=== PATIENT | male | born 1965 | race American Indian/Alaskan Native ===

== ENCOUNTER 2016-04-28 08:18 | Outpatient (CLI) | payer OTHER ==
[2016-04-28 08:55] LABS: Blood Urea Nitrogen 13 mg/dL (9-20)
[2016-04-28] MEDS ORDERED: NACL ONE (09:03)
--- NOTE | 2016-04-28 11:19 | Cat Scan Report ---
CTA abdomen, pelvis, lower extremities: Transverse images are obtained from lower chest to the feet with coronal and sagittal 2-D reformatted images as well as 3-D MIP reconstruction. The visualized lung bases are clear. The abdominal and retroperitoneal organs appear unremarkable. There is no adenopathy. The unopacified small bowel and mesentery are unremarkable. The appendix is visualized and normal. Scattered diverticula are noted in the colon. The lower thoracic and upper abdominal aorta is unremarkable. The mesenteric vessels are all patent. Does the patient single right renal artery and 2 patent left renal arteries. Approximately 4 cm below the lower of the left 2 renal arteries the abdominal aorta becomes aneurysmal in a fusiform shape with a maximum diameter of 4 centimeters. The aneurysm bifurcates into the common iliac arteries which are also aneurysmal with the right measuring just under 2 cm and the left measuring 1.7 cm. The JENNIFER's by bifurcate normally. The common femoral arteries and femoral bifurcations are also widely patent bilaterally. Both of the superficial femoral arteries as well as the popliteal and common peroneal arteries are widely patent. There is a normal peroneal trifurcation bilaterally with continuous three-vessel runoff to both ankles. Impressions: 1. Infrarenal abdominal aortic aneurysm extending into the common iliac arteries bilaterally. 2. Unremarkable bilateral lower extremity runoff vessels.
== END 2016-04-28 08:19 | disposition home or self-care (01) ==
LOC: CT 08:18
PROVIDERS: ATTEND Surgery Vascular Surgery
DX: I10 Essential (primary) hypertension (principal); I71.4 Abdominal aortic aneurysm, without rupture; K57.30 Diverticulosis of large intestine without perforation or abscess without bleeding
CPT/HCPCS: 36415; 75635; 82565; 84520; Q9967

== ENCOUNTER 2016-12-06 08:15 | Inpatient (IN) | payer OTHER ==
[2016-12-06 09:06] LABS: Basophils % (Auto) 0.5 % (0.0-1.8); Eosinophils % (Auto) 1.7 % (0.0-4.3); Hematocrit 45.3 % (35.5-45.6); Hemoglobin 15.1 gm/dl (11.8-15.2); Mean Corpuscular HGB Conc 33 % (32-34); Mean Corpuscular Hemoglobin 29 pg (28-32); Mean Corpuscular Volume 87 fl (84-94); Platelet Count 163 K/mm3 (140-440); Red Blood Count 5.24 M/mm3 (3.65-5.03); Red Cell Distribution Width 13.6 % (13.2-15.2); White Blood Count 8.6 K/mm3 (4.5-11.0)
--- NOTE | 2016-12-06 09:08 | Anesthesia Consultation ---
Anesthesia Consult and Med Hx Date of service: 12/08/16 - Airway Anesthetic Teeth Evaluation: Good ROM Head & Neck: Adequate Mental/Hyoid Distance: Adequate Mallampati Class: Class II Intubation Access Assessment: Probably Good - Pulmonary Exam CTA: Yes - Cardiac Exam Cardiac Exam: RRR - Pre-Operative Health Status ASA Pre-Surgery Classification: ASA2 Proposed Anesthetic Plan: General - Pulmonary Hx Smoking: No Hx Asthma: No Hx Sleep Apnea: No - Cardiovascular System Hx Hypertension: Yes (EF 45-50%) Hx Coronary Artery Disease: No Hx Cardia Arrhythmia: Yes ("irregular heartbeat") Hx Peripheral Vascular Disease: Yes (AORTIC ANEURYSM) - Central Nervous System Hx Seizures: No CVA: No Hx Back Pain: Yes Hx Psychiatric Problems: No - Endocrine Hx Renal Disease: No Hx Cirrhosis: No Hx Thyroid Disease: No Hx Hyperthyroidism: No - Other Systems Hx Cancer: No Hx Obesity: No - Additional Comments Anesthesia Medical History Comments: CARDIAC CLEARANCE ON CHART
[2016-12-08] MEDS ORDERED: NACL 0.9% 1000 ML 1,000 ML IV SCH ×2 (06:00)
[2016-12-08] MEDS ORDERED: VERSED IV NR (06:00)
[2016-12-08] MEDS ORDERED: ANCEF/STERILE WATER 2 GM/20 ML 2 GM/20 ML SYRINGE IV NR (06:00)
[2016-12-08] MEDS ORDERED: PEPCID PO NR (06:00)
[2016-12-08] MEDS ORDERED: NACL BACTERIOSTATIC INFILTRATI ONE (06:28)
[2016-12-08] MEDS ORDERED: ZEMURON IV ONE (07:09)
[2016-12-08] MEDS ORDERED: XYLOCAINE CARDIAC IV ONE (07:09)
[2016-12-08 07:22] LABS: Anion Gap 17 mmol/L; BUN/Creatinine Ratio 16.36; Blood Urea Nitrogen 18 mg/dL (9-20); Calcium 8.8 mg/dL (8.4-10.2); Carbon Dioxide 28 mmol/L (22-30); Chloride 102.9 mmol/L (98-107); Glucose 102 mg/dL (75-100); Potassium 3.9 mmol/L (3.6-5.0); Sodium 144 mmol/L (137-145)
[2016-12-08] MEDS ORDERED: HEPARIN 10,000 UNITS/10 ML ONE ×2 (07:30→09:55)
[2016-12-08] MEDS ORDERED: MARCAINE-EPI/PF 0.5%-1:200,000 INFILTRATI ONE ×2 (07:30→08:38)
[2016-12-08] MEDS ORDERED: PROTAMINE SULFATE ONE (07:30)
[2016-12-08] MEDS ORDERED: NACL 0.9% 200 ML ONE (07:31)
--- NOTE | 2016-12-08 07:36 | Anesthesia Day of Surgery ---
Anesthesia Day of Surgery - Day of Surgery Patient Examined: Yes Patient H&P Reviewed: Yes Patient is NPO: Yes Beta Blockers: Yes
[2016-12-08] MEDS ORDERED: DIPRIVAN 10 MG/ML IV ONE (07:47)
[2016-12-08] MEDS ORDERED: SUBLIMAZE ONE (07:48)
[2016-12-08] MEDS ORDERED: NACL 0.9% 250ML 250 ML ONE (07:56)
[2016-12-08] MEDS ORDERED: MORPHINE IV ONE (08:00)
[2016-12-08] MEDS ORDERED: NACL 0.9% IR ONE ×3 (08:38)
[2016-12-08] MEDS ORDERED: OMNIPAQUE IR ONE ×2 (08:38)
[2016-12-08] MEDS ORDERED: HEPARIN 10,000 UNITS/10 ML 4,000 UNIT in NACL 0.9% 1000 ML 1,000 ML IR ONE (08:38)
[2016-12-08] MEDS ORDERED: ZOFRAN IV PRN (09:30)
[2016-12-08] MEDS ORDERED: ZOFRAN ONE (10:13)
[2016-12-08] MEDS ORDERED: NEOSTIGMINE ONE (10:13)
[2016-12-08] MEDS ORDERED: ROBINUL ONE (10:13)
--- NOTE | 2016-12-08 10:33 | Operative Report ---
Operative Report Operative Report: Date of procedure: 12/08/2016 Pre-operative diagnosis: Abdominal aortic aneurysm Post-operative diagnosis: Same Procedure name(s): #1 Percutaneous endovascular abdominal and iliac artery aneurysms repair with Endurant endograft main body measuring 23 x 14 x 103 through the ipsilateral right side, contralateral limb 16 x 20 x 124 ipsilateral limb skin by 28 x 8 124 #2 introduction of catheters and wires into the aorta bilaterally. #3 aortic angiogram with radiologic supervision and closure. #4 ultrasound assisted introduction of the needle into the common femoral arteries bilaterally. #5 placement of balloon expandable 9 x 20 stent in the right external iliac artery. #6 percutaneous closure using Perclose device bilaterally. Surgeon: Abhijit Gallo MD, RPV[facility] Biology Research Assistant: CHANDNI Viramontes Anesthesia: Gen. Findings #1 abdominal aortic aneurysm #2 patent bilateral renal arteries post deployment #3 left patent hypogastric artery post deployment; occluded right hypogastric artery #4 complete exclusion of the aneurysms after the placing of the endograft with no evidence of endoleak. #5 excellent hemostatic closure. #6 both feet were warm with palpable pedal at the end of the case and the same as preop Specimens: None EBL: 50 mL IV fluids: 750 mL Disposition: The recovery Procedure Patient was brought to the operating room and laid on the table in supine position. Due to patient wishes he underwent general anesthesia. The abdomen and the groins were prepped and draped in usual sterile fashion. Under ultrasonic guidance the right common femoral artery was accessed using an a micropuncture needle. A micropuncture wire was advanced into the iliac artery. The introducer was placed the wire was exchanged to a Bentson wire. The tract was dilated using a 6 Georgian sheath. The Perclose device was placed with sutures toward the middle. They were anchored to the skin using Steri-Strips. Another Perclose device was placed with sutures laterally. They were also secured with a Steri-Strips. The 8 Georgian sheath was placed over the wire. The angled catheter was placed over the wire into the thoracic aorta. The wire was exchanged to a stiff Lunderquist wire. Under ultrasound guidance the left common femoral artery was accessed in the same fashion. 2 Perclose devices was placed in the same way. The 8 Georgian sheath was placed in the left common femoral artery over the wire. The pigtail catheter was advanced to the level of L2. The main body device was placed over the wire from the right side with the end of the fabric at about L1. The angiogram was performed and the renal arteries were marked on the screen. Patient was given 5000 units of intravenous heparin. The main body was positioned with the contralateral gate crossed to about anatomically. It was deployed infrarenally until the gate opened. The suprarenal stent was released. The pigtail was brought down below the gate. The cannulation of the gate was performed using the pigtail catheter and a Glidewire. The catheter spun around freely inside the graft. It was advanced into the thoracic aorta. The Lunderquist wire was placed through the pigtail. The pigtail was brought down to the level of the iliac artery. The angiogram through the left side was performed and the hypogastric artery was marked. The contralateral limb was advanced until adequate overlap with the gate was achieved. It was deployed in usual fashion. The retrograde angiogram from the right was performed. The right hypogastric artery was marked. The ipsilateral extension limb was placed and deployed. After the deployment the right hypogastric artery appeared to be occluded. And there was a 28 mm limb in the 10 mm artery. An attempt to advance the limb above the hypogastric was unsuccessful. It was further then stented using a 9 x 20 balloon expandable stent to prevent enfolding. Given the fact that the contralateral hypogastric was wide open and it was decided to leave this as it is. Retrograde angiogram showed no endoleak. The proximal and distal attachment sites were ballooned using the Reliant balloon as well as the overlap sites. Postprocedure angiogram revealed patent bilateral renal arteries, patent bilateral hypogastric arteries no evidence of endoleak. The sheaths were backed out over the wire and bilateral hemostasis was achieved by cinching down Perclose devices. Hemostasis was excellent and no bleeding was seen. The feet were examined there were warm to touch the same as preop. Bilateral palpable pedal pulses were noted. Patient tolerated procedure well and was transferred to recovery room in stable condition. At the end of the case all instrument, sponge, needle counts were correct
--- NOTE | 2016-12-08 10:47 | Post Anesthesia Evaluation ---
- Post Anesthesia Evaluation Patient Participated: Yes Airway Patent: Yes Stable Respiratory Function: Yes Nausea/Vomiting: No Temp > 96.8F: Yes Pain Manageable: Yes Adequeate Hydration: Yes Anesthesia Complications: No Block Receding Appropriately: Not Applicable Patient on Ventilator: No
[2016-12-08] MEDS: NACL 0.9% 1000 ML 1,000 ML IV SCH (13:05)
--- NOTE | 2016-12-08 13:52 | Progress Note ---
Assessment and Plan Status post endovascular repair of abdominal aortic aneurysm. Patient is doing well. Plan: Continue bed rest until 6 hours. DC Alexander in the line. Out of bed after bed rest. Subjective Date of service: 12/08/16 Principal diagnosis: AAA Interval history: Status post endovascular repair of abdominal aortic aneurysm repair. He was plans. Objective - Exam Narrative Exam: Abdomen soft, nontender no pulsatile masses. Palpable bilateral pedal pulses Bilateral groins soft no hematomas. - Constitutional Vitals: Vital Signs - 12hr 12/08/16 12/08/16 12/08/16 06:22 06:49 10:35 Temperature 98.6 F 98.6 F 97.7 F Pulse Rate 68 68 64 Respiratory 16 16 12 Rate Blood Pressure 130/83 130/83 99/51 O2 Sat by Pulse 97 97 100 Oximetry 12/08/16 12/08/16 12/08/16 10:40 10:45 10:50 Temperature Pulse Rate 69 56 L 53 L Respiratory 13 14 15 Rate Blood Pressure 110/71 109/71 110/71 O2 Sat by Pulse 100 100 100 Oximetry 12/08/16 12/08/16 12/08/16 11:05 11:20 11:35 Temperature 97.2 F L Pulse Rate 59 L 52 L 52 L Respiratory 17 17 16 Rate Blood Pressure 115/74 120/75 119/72 O2 Sat by Pulse 100 100 100 Oximetry 12/08/16 12/08/16 12/08/16 11:50 12:05 12:20 Temperature Pulse Rate 55 L 55 L 58 L Respiratory 14 15 15 Rate Blood Pressure 115/72 108/70 112/72 O2 Sat by Pulse 100 100 98 Oximetry 12/08/16 12/08/16 12:35 13:00 Temperature 97.5 F L 98.2 F Pulse Rate 59 L 55 L Respiratory 15 15 Rate Blood Pressure 113/70 118/75 O2 Sat by Pulse 98 98 Oximetry - Labs CBC & Chem 7: 12/06/16 08:50 12/08/16 06:44 Labs: Abnormal lab results 12/08/16 Range/Units 06:44 Glucose 102 H (75-100) mg/dL
[2016-12-08] MEDS ORDERED: ANCEF/NS 1 GM/50 ML 1 GM/50 ML BAG IV SCH (14:00)
[2016-12-08] MEDS: DILAUDID IV PRN ×2 (14:25→19:25)
[2016-12-08] MEDS: ANCEF/NS 1 GM/50 ML 1 GM/50 ML BAG IV SCH (16:42)
[2016-12-08] MEDS ORDERED: ZOCOR PO SCH (22:00)
[2016-12-08] MEDS: COREG PO SCH (22:30)
[2016-12-09] MEDS: ANCEF/NS 1 GM/50 ML 1 GM/50 ML BAG IV SCH (01:58)
[2016-12-09] MEDS: NORCO 5/325 PO PRN ×2 (04:20→09:11)
[2016-12-09] MEDS: NACL 0.9% 1000 ML 1,000 ML IV SCH (07:28)
[2016-12-09] MEDS: COREG PO SCH (09:11)
--- NOTE | 2016-12-09 09:53 | Consultation ---
History of Present Illness - Reason for Consult Consult date: 12/09/16 Post-Op Care ICU monitoring Requesting physician: HARVEY KNAPP - History of Present Illness 51 y/o male status post AAA repair by vascular on yesterday. Stable this morning. Has some complaints of chronic back pain. Vitals stable. No other issues Past History Past Medical History: hypertension, hyperlipidemia, other (chronic pain) Past Surgical History: Other (AAA repair, recently done) Social history: no significant social history Family history: no significant family history Medications and Allergies Allergies Allergy/AdvReac Type Severity Reaction Status Date / Time aspirin Allergy Anaphylaxis Verified 12/06/16 09:56 Home Medications Medication Instructions Recorded Confirmed Last Taken Type Simvastatin [Simvastatin] 20 mg PO QHS 03/17/16 12/08/16 12/07/16 22:00 History Amlodipine Besylate [Amlodipine 10 mg PO DAILY 12/02/16 12/08/16 12/08/16 05:30 History Besylate] Oxycodone HCl/Acetaminophen 1 tab PO PRN PRN 12/02/16 12/08/16 11/24/16 History [Oxycodone-Acetaminophen 5-325] Carvedilol [Coreg] 25 mg PO BID 12/08/16 12/08/16 12/08/16 05:30 History Active Meds: Active Medications Acetaminophen/Hydrocodone Bitart ([place] 5/325) 1 each PO Q4H PRN PRN Reason: Pain, Moderate (4-6) Last Admin: 12/09/16 09:11 Dose: 1 each Amlodipine Besylate (Norvasc) 10 mg PO DAILY [facility] Last Admin: 12/09/16 09:12 Dose: 10 mg Carvedilol (Coreg) 25 mg PO BID [facility] Last Admin: 12/09/16 09:11 Dose: 25 mg Clopidogrel Bisulfate (Plavix) 75 mg PO QDAY [facility] Last Admin: 12/09/16 09:11 Dose: 75 mg Sodium Chloride (Nacl 0.9% 1000 Ml) 1,000 mls @ 42 mls/hr IV DIRECT MEG Sodium Chloride (Nacl 0.9% 1000 Ml) 1,000 mls @ 75 mls/hr IV DIRECT [facility] Last Admin: 12/08/16 06:45 Dose: 75 mls/hr Simvastatin (Zocor) 20 mg PO QHS [facility] Last Admin: 12/08/16 22:30 Dose: 20 mg Review of Systems All systems: negative Exam - Constitutional Vitals: Temp Pulse Resp BP Pulse Ox 99.5 F 74 15 113/64 98 12/09/16 07:58 12/09/16 09:12 12/09/16 09:00 12/09/16 09:12 12/09/16 09:00 General appearance: Present: no acute distress - EENT Eyes: Present: PERRL, EOM intact ENT: hearing intact, clear oral mucosa - Neck Neck: Present: supple - Respiratory Respiratory effort: normal Respiratory: bilateral: CTA - Cardiovascular Rhythm: regular Heart Sounds: Present: S1 & S2 - Extremities Extremities: no ischemia Results - Labs CBC & Chem 7: 12/06/16 08:50 12/08/16 06:44 Labs: Abnormal lab results 12/08/16 12/08/16 Range/Units 09:15 10:04 Activated Clotting Time 186 H 191 H (74-137) Assessment and Plan 51 y/o male with triple A repair endovascular. 1. Continue home medication regimen 2. Follow up vascular recs 3. Clinically appears stable for floor transfer.
[2016-12-09] MEDS ORDERED: NORVASC PO SCH (10:00)
[2016-12-09] MEDS ORDERED: PLAVIX PO SCH (10:00)
--- NOTE | 2016-12-09 12:08 | Progress Note ---
Assessment and Plan Postoperative day 1. Status post EVAR. We'll continue pain control with [place]. Dulcolax suppository for constipation. Patient will get out of bed. He is back pain is most likely related to positioning on the table during procedure. Plan to check patient this afternoon. If he improves, we'll discharge today. Subjective Date of service: 12/09/16 Principal diagnosis: AAA Interval history: Patient is complaining of back pain, however it was preexistent before intervention. He is also complaining of some abdominal pain that is worse with eating. He denies groin pain, lower extremity pain or numbness. Objective - Exam Narrative Exam: Abdomen is soft, nondistended, with tenderness in the left lower quadrant. This could be related to constipation. He is afebrile and his vital signs are stable. Bilateral groin incisions are clean dry and intact, without hematoma or drainage. Palpable pedal pulses. - Constitutional Vitals: Vital Signs - 12hr 12/09/16 12/09/16 12/09/16 01:00 02:00 03:00 Temperature Pulse Rate 67 67 69 Respiratory 16 19 17 Rate Blood Pressure 122/71 122/74 106/53 O2 Sat by Pulse 96 95 93 Oximetry 12/09/16 12/09/16 12/09/16 03:37 04:01 05:00 Temperature 99.9 F H Pulse Rate 65 64 Respiratory 20 18 Rate Blood Pressure 98/49 112/70 O2 Sat by Pulse 93 96 Oximetry 12/09/16 12/09/16 12/09/16 06:00 07:00 07:58 Temperature 99.5 F Pulse Rate 68 63 Respiratory 17 19 Rate Blood Pressure 106/59 105/60 O2 Sat by Pulse 96 94 Oximetry 12/09/16 12/09/16 12/09/16 08:00 08:43 09:00 Temperature Pulse Rate 67 71 Respiratory 20 15 Rate Blood Pressure 109/59 113/64 O2 Sat by Pulse 97 99 98 Oximetry 12/09/16 12/09/16 12/09/16 09:11 09:12 10:00 Temperature Pulse Rate 74 74 61 Respiratory 14 Rate Blood Pressure 113/64 113/64 113/68 O2 Sat by Pulse 99 Oximetry 12/09/16 11:00 Temperature Pulse Rate 63 Respiratory 20 Rate Blood Pressure 99/58 O2 Sat by Pulse 98 Oximetry General appearance: Present: no acute distress - Labs CBC & Chem 7: 12/06/16 08:50 12/08/16 06:44 Labs: Abnormal lab results 12/08/16 12/08/16 Range/Units 09:15 10:04 Activated Clotting Time 186 H 191 H (74-137)
[2016-12-09] MEDS ORDERED: NACL 0.9% 500 ML 500 ML IV ONE (12:58)
[2016-12-09] MEDS ORDERED: NACL ONE (15:57)
--- NOTE | 2016-12-09 16:33 | Short Stay Summary ---
Short Stay Documentation - History H&P: obtained from office Past Medical History: hypertension, hyperlipidemia, other (chronic pain) Past Surgical History: Other (AAA repair, recently done) Social history: no significant social history - Allergies and Medications Current Medications: Allergies aspirin Allergy (Verified 12/06/16 09:56) Anaphylaxis Home Medications Medication Instructions Recorded Confirmed Last Taken Type Simvastatin [Simvastatin] 20 mg PO QHS 03/17/16 12/08/16 12/07/16 22:00 History Amlodipine Besylate [Amlodipine 10 mg PO DAILY 12/02/16 12/08/16 12/08/16 05:30 History Besylate] Oxycodone HCl/Acetaminophen 1 tab PO PRN PRN 12/02/16 12/08/16 11/24/16 History [Oxycodone-Acetaminophen 5-325] Carvedilol [Coreg] 25 mg PO BID 12/08/16 12/08/16 12/08/16 05:30 History Active Medications Acetaminophen/Hydrocodone Bitart ([place] 5/325) 1 each PO Q4H PRN PRN Reason: Pain, Moderate (4-6) Last Admin: 12/09/16 09:11 Dose: 1 each Amlodipine Besylate (Norvasc) 10 mg PO DAILY [facility] Last Admin: 12/09/16 09:12 Dose: 10 mg Carvedilol (Coreg) 25 mg PO BID [facility] Last Admin: 12/09/16 09:11 Dose: 25 mg Clopidogrel Bisulfate (Plavix) 75 mg PO QDAY [facility] Last Admin: 12/09/16 09:11 Dose: 75 mg Sodium Chloride (Nacl 0.9% 1000 Ml) 1,000 mls @ 42 mls/hr IV DIRECT MEG Sodium Chloride (Nacl 0.9% 1000 Ml) 1,000 mls @ 75 mls/hr IV DIRECT [facility] Last Admin: 12/08/16 06:45 Dose: 75 mls/hr Simvastatin (Zocor) 20 mg PO QHS [facility] Last Admin: 12/08/16 22:30 Dose: 20 mg - Physical exam Extremities: no ischemia - Brief post op/procedure progress note Procedure: Date of procedure: 12/08/2016 Pre-operative diagnosis: Abdominal aortic aneurysm Post-operative diagnosis: Same Procedure name(s): #1 Percutaneous endovascular abdominal and iliac artery aneurysms repair with Endurant endograft main body measuring 23 x 14 x 103 through the ipsilateral right side, contralateral limb 16 x 20 x 124 ipsilateral limb skin by 28 x 8 124 #2 introduction of catheters and wires into the aorta bilaterally. #3 aortic angiogram with radiologic supervision and closure. #4 ultrasound assisted introduction of the needle into the common femoral arteries bilaterally. #5 placement of balloon expandable 9 x 20 stent in the right external iliac artery. #6 percutaneous closure using Perclose device bilaterally. Surgeon: Abhijit Gallo MD, RPVI Aircraft Engine Specialist: CHANDNI Viramontes Anesthesia: Gen. Findings #1 abdominal aortic aneurysm #2 patent bilateral renal arteries post deployment #3 left patent hypogastric artery post deployment; occluded right hypogastric artery #4 complete exclusion of the aneurysms after the placing of the endograft with no evidence of endoleak. #5 excellent hemostatic closure. #6 both feet were warm with palpable pedal at the end of the case and the same as preop Specimens: None EBL: 50 mL IV fluids: 750 mL Disposition: The recovery - Hospital course Hospital course: Patient was admitted for elective as groin and abdominal aortic aneurysm for which he underwent endovascular repair was no issues. On postop day 1 he had a short period of hypotension that appeared to be vasovagal. He underwent a CT scan of the abdomen and pelvis with contrast that showed no retroperitoneal hematoma and intact aneurysm repair as well as no evidence of bowel ischemia. Patient has complained of back pain which is most likely due to positioning on the table as well as being bedridden overnight. Patient is doing well now and ready to go home. - Disposition Condition at discharge: Good Disposition: DC-01 TO HOME OR SELFCARE Short Stay Discharge Plan Activity: advance as tolerated, other (no heavy exercise or riding for 1 week) Diet: regular Wound: open to air Follow up with: ANNIE CM MD [Primary Care Provider] - 7 Days ABHIJIT GALLO MD [Staff Physician] - 14 Days
--- NOTE | 2016-12-09 16:46 | Cat Scan Report ---
CTA abdomen and pelvis: Patient with recent endograft placement and hypotension for evaluation. Following IV contrast administration and rapid sequence transverse images were obtained from the low chest to the ischium with coronal and sagittal 2-D reformatted images. Derotational 3-D MIP images is included. The visualized lung bases are unremarkable. Tiny gallstone versus vessel. Normal retroperitoneal organs. Unremarkable on nonenhanced bowel and mesentery. The endograft insertion is at the approximate level of the renal arteries. Both renal arteries are patent as are the SMA and celiac vessels. There is a fusiform aneurysm of the mid and distal abdominal aorta with a maximum diameter of 4.2 cm. This is not significantly changed from the preoperative aorta in April 2006 obtained. There is an endograft leak arising from the aorta just proximal to the limb division. The leak is anterior and predominantly overlies the left limb. The focal leakage collection measures 0.9 x 1.4 cm. A thin extension of the leak extends inferiorly along the left and posterior periphery of the aneurysm filling spinal vessels posteriorly. The limbs insert in the common iliac arteries respectively. An air bubble is present in the aneurysm thrombus anterior to the proximal limbs. Impressions: Endograft leak.
[2016-12-09 17:03] VITALS: BP 142/90
== END 2016-12-09 17:39 | disposition home or self-care (01) | DRG 269 ==
LOC: UNDOADMIN 08:15 → 3A 08:15 → CC1 12-08 10:45
PROVIDERS: ADMIT Surgery Vascular Surgery; ATTEND Surgery Vascular Surgery
PROC: 04V03DZ Restriction of Abdominal Aorta with Intraluminal Device, Percutaneous Approach (ICD-10-PCS; principal; 2016-12-08)
PROC: 04VH3DZ Restriction of Right External Iliac Artery with Intraluminal Device, Percutaneous Approach (ICD-10-PCS; 2016-12-08)
PROC: B41D1ZZ Fluoroscopy of Aorta and Bilateral Lower Extremity Arteries using Low Osmolar Contrast (ICD-10-PCS; 2016-12-08)
DX: I71.4 Abdominal aortic aneurysm, without rupture (principal); I10 Essential (primary) hypertension; E78.5 Hyperlipidemia, unspecified; G89.29 Other chronic pain; K59.00 Constipation, unspecified; I73.9 Peripheral vascular disease, unspecified; Z88.6 Allergy status to analgesic agent; Z79.899 Other long term (current) drug therapy
CPT/HCPCS: 36415; 36620; 74174; 75952; 80048; 85025; 85347; 86850; 86900; 86901; 94760; C1760; C1768; C1769; C1876; C1887; C1894; J0690; J1170; J1644; J2001; J2250; J2270; J2405; J2704; J2710; J2720; J3010; J3246; J7030; J7040; J7050; Q9966; Q9967

== ENCOUNTER 2017-03-29 08:33 | Outpatient (CLI) | payer OTHER ==
[2017-03-29 09:05] LABS: Blood Urea Nitrogen 13 mg/dL (9-20)
[2017-03-29] MEDS ORDERED: NACL ONE (09:57)
--- NOTE | 2017-03-29 14:08 | Cat Scan Report ---
CT ANGIOGRAM ABDOMEN AND PELVIS History: Abdominal aortic aneurysm without rupture Technique: Helical CT following IV contrast and 1.25 mm intervals. Sagittal and coronal reformatted images. Three-dimensional volume rendering technique. Comparison: 12/13/16. Findings: The aortobiiliac stent remains in the same position since the previous exam. The infrarenal AAA has increased in size slightly from 4.2 cm to 4.5 cm in maximum diameter. Type II endoleak is again seen and not significantly changed. No new endoleak is appreciated. The aorta, celiac axis, SMA, and bilateral single renal arteries are patent with less than 20% stenosis. The origin of the MARIUM is occluded. The origin of the right internal iliac artery appears occluded. Impression: Infrarenal AAA has increased in maximum diameter from 4.2 cm to 4.5 cm. Type II endoleak is unchanged.
== END 2017-03-29 08:34 | disposition home or self-care (01) ==
LOC: CT 08:33
PROVIDERS: ATTEND Surgery Vascular Surgery
DX: I10 Essential (primary) hypertension (principal); I71.4 Abdominal aortic aneurysm, without rupture; I12.9 Hypertensive chronic kidney disease with stage 1 through stage 4 chronic kidney disease, or unspecified chronic kidney disease; N18.9 Chronic kidney disease, unspecified; E78.5 Hyperlipidemia, unspecified
CPT/HCPCS: 36415; 74174; 82565; 84520; Q9967

== ENCOUNTER 2017-05-23 10:13 | Emergency (ER) | payer OTHER ==
[2017-05-23 10:36] VITALS: BP 117/69
--- NOTE | 2017-05-23 13:40 | Emergency Department Report ---
ED Rash HPI - HPI Chief Complaint: Skin Rash Stated Complaint: RASH Time Seen by Provider: 05/23/17 13:34 Duration: 3 months Location: Lower Extremities Rash Symptoms: Yes Itching, No Facial Swelling, No Tongue/Oral Swelling, No Breathing Difficulties, No Choking Sensation, No Wheezing/Dyspnea, No Peeling, No Blistering, No Fever, No Lightheaded, No Malaise, No Myalgias Severity: mild ED Review of Systems ROS: Stated complaint: RASH Other details as noted in HPI Comment: All other systems reviewed and negative ENT: denies: throat pain Respiratory: denies: cough Cardiovascular: denies: chest pain ED Past Medical Hx - Past Medical History Previous Medical History?: Yes Hx Hypertension: Yes Hx CVA: Yes (2000) Hx Congestive Heart Failure: No Hx Diabetes: No Hx GERD: Yes Hx Renal Disease: No Hx Arthritis: Yes Hx Headaches / Migraines: Yes (migraines) Hx Seizures: No Hx Asthma: No Hx COPD: No Hx Tuberculosis: No Hx HIV: No Additional medical history: a-fib = coumadin, norvasc, CAD - Surgical History Past Surgical History?: Yes Hx Coronary Stent: Yes Hx Open Heart Surgery: Yes (12-08-2016) Additional Surgical History: Heart cath - Social History Smoking Status: Never Smoker Substance Use Type: Non Opiate Pain, Prescribed - Medications Home Medications: Home Medications Medication Instructions Recorded Confirmed Last Taken Type Simvastatin 20 mg PO QHS 03/17/16 12/13/16 12/07/16 22:00 History Amlodipine Besylate 10 mg PO DAILY 12/02/16 12/13/16 12/08/16 05:30 History Carvedilol [Coreg] 25 mg PO BID 12/08/16 12/13/16 12/08/16 05:30 History Carvedilol [Coreg] 25 mg PO BID #30 tablet 12/15/16 Unknown Rx amLODIPine [Norvasc] 10 mg PO QDAY #30 tablet 12/15/16 Unknown Rx Rash Exam - Exam General: Vital signs noted. No distress. Alert and acting appropriately. HEENT: No Periorbital Edema, No Conjuctival Injection, No Chemosis, No Perioral Edema, No Tongue Edema, No Uvular Edema, No Compromised Airway, No Drooling Lungs: No Good Air Exchange, No Wheezes, No Ronchi, No Stridor, No Cough, No Labored Respirations, No Retractions, No Use of Accessory Muscles, No Other Abnormal Lung Sounds Heart: Yes Regular, No Murmur Skin: Yes Urticarial Rash, No Maculopapular Rash, No Morbilliform rash, No Bulla (e), No Excoriations, No Weeping, No Tenderness, No Erythema, No Edema, No Encrustations Other: Positive: Abdomen Normal, Neurologic Normal, Musculoskeletal Normal ED Course Vital Signs 05/23/17 10:31 Temperature 98 F Pulse Rate 56 L Respiratory 16 Rate Blood Pressure 117/69 O2 Sat by Pulse 100 Oximetry Critical care attestation.: If time is entered above; I have spent that time in minutes in the direct care of this critically ill patient, excluding procedure time. ED Disposition Clinical Impression: Contact dermatitis Disposition: - TO HOME OR SELFCARE Is pt being admited?: No Condition: Stable Instructions: Contact Dermatitis (ED) Referrals: PRIMARY CARE, [Primary Care Provider] - 3-5 Days
== END 2017-05-23 13:54 | disposition home or self-care (01) ==
LOC: ED 10:13
DX: L25.9 Unspecified contact dermatitis, unspecified cause (principal); I10 Essential (primary) hypertension; K21.9 Gastro-esophageal reflux disease without esophagitis; G43.909 Migraine, unspecified, not intractable, without status migrainosus; M19.90 Unspecified osteoarthritis, unspecified site; Z86.73 Personal history of transient ischemic attack (TIA), and cerebral infarction without residual deficits; Z95.1 Presence of aortocoronary bypass graft
CPT/HCPCS: 99282

== ENCOUNTER 2017-10-13 10:06 | Outpatient (CLI) | payer OTHER ==
[2017-10-13 10:52] LABS: Blood Urea Nitrogen 13 mg/dL (9-20)
--- NOTE | 2017-10-13 14:19 | Cat Scan Report ---
CT ANGIOGRAM ABDOMEN AND PELVIS History: Abdominal aortic aneurysm without rupture. Technique: Helical CT following IV contrast. Sagittal and coronal reformatted images. Rotational MIP images. Findings: The infrarenal aortic aneurysm appears stable in size measuring 4.5 cm in maximum diameter. The aortobiiliac stent remains in the same position. Type II endoleak is again identified and not significantly changed. The celiac axis, SMA and bilateral single renal arteries remain widely patent with less than 20% stenosis. The origin of the MARIUM remains occluded. The right common iliac artery is moderately dilated up to 2.9 cm which is unchanged. The left common iliac artery is mildly dilated up to 2.3 cm which is unchanged. The bilateral internal and external iliac arteries are widely patent with less than 20% stenosis. IMPRESSION: Stable appearance of the infrarenal AAA measuring 4.5 cm was type II endoleak since 03/29/17.
== END 2017-10-13 10:07 | disposition home or self-care (01) ==
LOC: CT 10:06
PROVIDERS: ATTEND Surgery Vascular Surgery
DX: I71.4 Abdominal aortic aneurysm, without rupture (principal); I12.9 Hypertensive chronic kidney disease with stage 1 through stage 4 chronic kidney disease, or unspecified chronic kidney disease; N18.9 Chronic kidney disease, unspecified; E78.5 Hyperlipidemia, unspecified; K21.9 Gastro-esophageal reflux disease without esophagitis; M19.90 Unspecified osteoarthritis, unspecified site; I48.91 Unspecified atrial fibrillation
CPT/HCPCS: 36415; 74174; 82565; 84520; Q9967

== ENCOUNTER 2017-10-25 12:04 | Emergency (ER) | payer OTHER ==
[2017-10-25 13:27] LABS: Hematocrit 45.3 % (35.5-45.6); Hemoglobin 15.1 gm/dl (11.8-15.2); Mean Corpuscular HGB Conc 33 % (32-34); Mean Corpuscular Hemoglobin 29 pg (28-32); Mean Corpuscular Volume 86 fl (84-94); Platelet Count 164 K/mm3 (140-440); Red Blood Count 5.25 M/mm3 (3.65-5.03); Red Cell Distribution Width 13.7 % (13.2-15.2)
[2017-10-25 13:35] LABS: BUN/Creatinine Ratio 15; Blood Urea Nitrogen 16 mg/dL (9-20); Calcium 9.4 mg/dL (8.4-10.2); Hemolysis Index 15
--- NOTE | 2017-10-25 16:44 | Emergency Department Report ---
ED Abdominal Pain HPI - General Chief Complaint: Back Pain/Injury Stated Complaint: BACK/STOMACH PAIN Time Seen by Provider: 10/25/17 16:40 Source: patient Mode of arrival: Ambulatory Limitations: No Limitations - History of Present Illness Initial Comments: 52-year-old man with significant history of aortic abdominal aneurysm repair one year ago, presents with history of fairly new onset over the past week of persistent abdominal discomfort and a sense of distention, along with chronic lower back pain radiating around both sides, which has been present since his open AAA repair a year ago, but with exacerbation over the past week or 2, with discomfort in his abdomen as well now, with nausea, no significant vomiting, no diarrhea, and a sense of constipation, as he normally has 3 loose bowel movements per day on a regular basis, and has only had one bowel movement daily over the past several days, including today. He has not had any vomiting, describes no melena, and no hematochezia. Abdominal discomfort is more a sense of distention, with mild ache, no particular cramping, and not associated with nausea or vomiting, and not relieved by anything. He has been able to take in food fairly well, but believes that he may have been eating less from a general sense of discomfort. Back discomfort is moderate to severe, 7-9 out of 10, felt on both sides, radiates around both sides into the groin area bilaterally. It somewhat exacerbated by movement, but there is no significant relief even at rest. Tramadol gives him only minimal minor relief. Patient visited his vascular surgeon last week for evaluation of the pain, had CT angiography of the aorta, and this was reported normal. He was discharged back to his routine regimen of tramadol for his chronic lower back pain. - Related Data Home Medications Medication Instructions Recorded Confirmed Last Taken Simvastatin 20 mg PO QHS 03/17/16 12/13/16 12/07/16 22:00 Amlodipine Besylate 10 mg PO DAILY 12/02/16 12/13/16 12/08/16 05:30 Carvedilol [Coreg] 25 mg PO BID 12/08/16 12/13/16 12/08/16 05:30 Previous Rx's Medication Instructions Recorded Last Taken Type Carvedilol [Coreg] 25 mg PO BID #30 tablet 12/15/16 Unknown Rx amLODIPine [Norvasc] 10 mg PO QDAY #30 tablet 12/15/16 Unknown Rx Triamcinolone 0.1% [Kenalog 0.1% 1 applic TP BID #1 tube 05/23/17 Unknown Rx CREAM] HYDROcodone/APAP 5-325 [[place] 1 - 2 each PO Q6HR PRN #20 tablet 10/25/17 Unknown Rx 5/325] traMADol [Ultram 50 MG tab] 50 mg PO Q6HR PRN #20 tablet 10/25/17 Unknown Rx Allergies Allergy/AdvReac Type Severity Reaction Status Date / Time aspirin Allergy Anaphylaxis Verified 12/06/16 09:56 ED Review of Systems ROS: Stated complaint: BACK/STOMACH PAIN Other details as noted in HPI ED Past Medical Hx - Past Medical History Hx Hypertension: Yes Hx CVA: Yes (2000) Hx Congestive Heart Failure: No Hx Diabetes: No Hx GERD: Yes Hx Renal Disease: No Hx Arthritis: Yes Hx Headaches / Migraines: Yes (migraines) Hx Seizures: No Hx Asthma: No Hx COPD: No Hx Tuberculosis: No Hx HIV: No Additional medical history: a-fib = coumadin, norvasc, CAD - Surgical History Hx Coronary Stent: Yes Hx Open Heart Surgery: Yes (12-08-2016) Additional Surgical History: Heart cath, AAA repair 11/2016 - Social History Smoking Status: Never Smoker Substance Use Type: None - Medications Home Medications: Home Medications Medication Instructions Recorded Confirmed Last Taken Type Simvastatin 20 mg PO QHS 03/17/16 12/13/16 12/07/16 22:00 History Amlodipine Besylate 10 mg PO DAILY 12/02/16 12/13/16 12/08/16 05:30 History Carvedilol [Coreg] 25 mg PO BID 12/08/16 12/13/16 12/08/16 05:30 History Carvedilol [Coreg] 25 mg PO BID #30 tablet 12/15/16 Unknown Rx amLODIPine [Norvasc] 10 mg PO QDAY #30 tablet 12/15/16 Unknown Rx Triamcinolone 0.1% [Kenalog 0.1% 1 applic TP BID #1 tube 05/23/17 Unknown Rx CREAM] HYDROcodone/APAP 5-325 [[place] 1 - 2 each PO Q6HR PRN #20 tablet 10/25/17 Unknown Rx 5/325] traMADol [Ultram 50 MG tab] 50 mg PO Q6HR PRN #20 tablet 10/25/17 Unknown Rx ED Physical Exam - General Limitations: No Limitations General appearance: alert, in distress (localized discomfort mid lumbar back) - Head Head exam: Present: atraumatic, normocephalic - Eye Eye exam: Present: normal appearance, PERRL, EOMI - ENT ENT exam: Present: normal exam, mucous membranes moist - Neck Neck exam: Present: normal inspection, full ROM. Absent: tenderness - Respiratory Respiratory exam: Present: normal lung sounds bilaterally. Absent: respiratory distress, wheezes, rales, rhonchi - Cardiovascular Cardiovascular Exam: Present: regular rate, normal heart sounds. Absent: systolic murmur - GI/Abdominal GI/Abdominal exam: Present: soft, normal bowel sounds. Absent: tenderness, guarding, rebound, pulsatile mass, other (no abdominal scars) - Rectal Rectal exam: Present: deferred - Extremities Exam Extremities exam: Present: normal inspection, full ROM, normal capillary refill. Absent: tenderness - Back Exam Back exam: Present: normal inspection, tenderness (bilateral paralumbar soft tissue, upper lumbar area). Absent: CVA tenderness (R), CVA tenderness (L), muscle spasm, vertebral tenderness, rash noted - Neurological Exam Neurological exam: Present: alert, oriented X3, CN II-XII intact, reflexes normal. Absent: motor sensory deficit - Psychiatric Psychiatric exam: Present: normal affect, normal mood - Skin Skin exam: Present: warm, dry ED Course Vital Signs 10/25/17 10/25/17 10/25/17 12:09 16:46 16:47 Temperature 36.6 C 37.1 C Pulse Rate 58 L 56 L 53 L Respiratory 18 18 17 Rate Blood Pressure 127/75 Blood Pressure 126/84 [Left] O2 Sat by Pulse 100 98 99 Oximetry 10/25/17 10/25/17 10/25/17 17:00 17:15 17:30 Temperature Pulse Rate 50 L 50 L 52 L Respiratory 17 16 17 Rate Blood Pressure 124/78 124/82 131/80 Blood Pressure [Left] O2 Sat by Pulse 98 98 98 Oximetry 10/25/17 10/25/17 10/25/17 17:46 17:49 18:00 Temperature Pulse Rate 60 56 L Respiratory 14 17 20 Rate Blood Pressure 124/78 130/81 Blood Pressure [Left] O2 Sat by Pulse 97 95 Oximetry 0710/25/17 10/25/17 18:15 18:19 18:30 Temperature Pulse Rate 60 65 Respiratory 14 15 16 Rate Blood Pressure 135/70 140/77 Blood Pressure [Left] O2 Sat by Pulse 97 97 Oximetry 10/25/17 10/25/17 10/25/17 18:45 19:00 19:15 Temperature Pulse Rate 54 L 57 L 61 Respiratory 18 13 9 L Rate Blood Pressure 129/79 118/75 131/88 Blood Pressure [Left] O2 Sat by Pulse 98 97 96 Oximetry 10/25/17 19:30 Temperature Pulse Rate 60 Respiratory 13 Rate Blood Pressure 126/78 Blood Pressure [Left] O2 Sat by Pulse 97 Oximetry - Reevaluation(s) Reevaluation #1: 10/25/17 19:47 Patient improved after medication for discomfort with morphine, resting much more comfortably, repeat examination shows continued discomfort in the bilateral paralumbar musculature bilaterally in the upper lumbar area. No costovertebral angle tenderness, and no lumbosacral tenderness. ED Medical Decision Making - Lab Data Result diagrams: 10/25/17 13:02 10/25/17 13:02 - Radiology Data Radiology results: report reviewed CT scan results reviewed, basically stable, showing an abdominal aortic aneurysm , measured 4.1 cm, unchanged from previous examination, with stent intact, no evidence of leakage, and with right iliac artery portion showing 2.8 cm aneurysm , which is a modest increase from 2.4 cm from prior examination, with no evidence of leak either. There is also a small amount of free fluid, which is unchanged from previous examination, which also showed free fluid, and considered stable, small diverticuli, but without evidence of diverticulitis, and a small right renal stone, 2 mm, with no evidence of hydronephrosis. - Medical Decision Making Patient has mid back discomfort, which is being chronic, appears to have been getting worse, but I believe that his primary difficulty has been under medication, as he has not been given any routine medications for pain flareups, despite evaluation for similar complaints one week earlier, with the negative CT examination of the aorta on October 13. I will give patient a refill of tramadol for mild discomfort, and hydrocodone for more significant pain, and despite his negative examination of the previous week, will recommend that he have expedited follow-up within the next week or 2 with his vascular surgeon for collaboration on discussion of results of this CT scan as well. Laboratory evaluation is stable, patient is stable for discharge home. Critical Care Time: No Critical care attestation.: If time is entered above; I have spent that time in minutes in the direct care of this critically ill patient, excluding procedure time. ED Disposition Clinical Impression: Back pain, Abdominal aortic aneurysm (AAA), H/O endovascular stent graft for abdominal aortic aneurysm Disposition: TO HOME OR SELFCARE Is pt being admited?: No Does the pt Need Aspirin: No Condition: Stable Instructions: Low Back Strain (ED) Additional Instructions: Laboratory evaluation and CT scan is stable today, with no evidence of leakage from the stents of your abdominal aneurysm, although there appears to be a minor enlargement of the iliac artery portion of the aneurysm, of the artery that leads toward the right leg. There is no evidence of leakage, and this is a stable examination today, with normal labs, and good relief with treatment of your discomfort, which appears to be local muscular discomfort. We're treating discomfort with tramadol for minor pain, and hydrocodone for more significant pain, and we recommend an expedited repeat examination with your vascular surgeon within the next 1-2 weeks. If there is any significant exacerbation or worsening of pain, or any new symptoms, return immediately to the emergency department for additional evaluation. Prescriptions: HYDROcodone/APAP 5-325 [[place] 5/325] 1 - 2 each PO Q6HR PRN #20 tablet PRN Reason: Pain , Severe (7-10) traMADol [Ultram 50 MG tab] 50 mg PO Q6HR PRN #20 tablet PRN Reason: Pain, Mild (1-3) Referrals: IVANIA KIM MD [Primary Care Provider] - 3-5 Days Time of Disposition: 19:54
[2017-10-25] MEDS ORDERED: MORPHINE IV PRN (16:51)
[2017-10-25] MEDS ORDERED: ZOFRAN IV ONE (16:52)
[2017-10-25] MEDS ORDERED: NACL 0.9% 1000 ML 1,000 ML IV ONE (16:52)
[2017-10-25 17:33] LABS: Bilirubin,Urine NEG (Negative); Blood,Urine NEG (Negative); Color,Urine Yellow (Yellow); Mucus,Urine 1+ /HPF; Protein,Urine <15 mg/dL mg/dL (Negative); RBC,Urine < 1.0 /HPF (0.0-6.0); Urobilinogen,Urine < 2.0 mg/dL (<2.0); WBC,Urine < 1.0 /HPF (0.0-6.0)
--- NOTE | 2017-10-25 18:43 | Cat Scan Report ---
FINAL REPORT PROCEDURE: CT ABDOMEN PELVIS WO CON TECHNIQUE: Computerized axial tomography of the abdomen and pelvis was performed without intravenous contrast. This study is performed without intravascular contrast material and its sensitivity for abdominal and pelvic pathology, including neoplasms, inflammation, abscess, free fluid, thrombosis, arterial dissection and infarction, is reduced compared with a contrast enhanced study. HISTORY: abd pain aaa on coumadin COMPARISON: No prior studies are available for comparison. FINDINGS: Lower Lung bhatia: Minimal dependent atelectasis. Upper Abdomen: The liver, the gallbladder, the adrenal glands, the pancreas and the spleen are unremarkable. Kidneys, Ureters and Urinary bladder: Nonobstructing 2 millimeter calculus seen lower 3rd right kidney. No other renal calculi are seen. There are no masses identified. No hydronephrosis. Ureters are not distended. No ureteral calculi are seen. Urinary bladder is unremarkable. Retroperitoneum: Atherosclerotic changes are seen in the abdominal aorta and iliac arteries. There is a [place] abdominal aortic aneurysm measuring 4.1 centimeter AP dimension which has not changed significantly compared to the prior study. There is a metallic stent seen in the abdominal aorta extending to the iliac arteries bilaterally. In the right common iliac artery region there is a stent within a stent., In the stent extending into the right common iliac artery there is dilatation of the common iliac artery and stent measuring 2.8 centimeters. On the prior study this measured 2.4 centimeters. The dilatation of the vessel including the stent has increased. No discrete acute leakage is identified. Iliac stent on the left is unchanged. Nonspecific subcentimeter lymph nodes are seen in the retroperitoneum. No pathologically enlarged lymph nodes are identified. Bowel: Minimal diverticulosis seen left side of the colon without evidence of diverticulitis. Mild diverticulosis seen in the mid transverse colon. Right side of the colon is unremarkable. Normal-appearing appendix is seen in the right lower quadrant. Reproductive organs: Prostate gland does not appear to be significantly enlarged. Other: Small amount of free fluid is present in the lower pelvis posteriorly. This is similar in appearance and volume compared to the prior study. No acute bony abnormalities are identified. IMPRESSION: Stable aneurysmal dilatation abdominal aorta. An aorto bi-iliac stent is in place. A stent within the stent is seen in the right common iliac artery which was present on the prior study. The aneurysmal dilatation including the stent in the right common iliac artery has increased in diameter since the prior study from approximately 2.4 centimeters to now measuring 2.8 centimeter. No leakage is visualized. Mild colonic diverticulosis without evidence of diverticulitis. Small amount of ascites/fluid present in the lower pelvis posteriorly. This has not changed significantly in appearance or volume since the prior study. Nonobstructing 2 millimeter calculus lower 3rd right kidney.
[2017-10-25 20:04] VITALS: BP 131/88
== END 2017-10-25 20:03 | disposition home or self-care (01) ==
LOC: ED 12:04
DX: I71.4 Abdominal aortic aneurysm, without rupture (principal); I10 Essential (primary) hypertension; K21.9 Gastro-esophageal reflux disease without esophagitis; M19.90 Unspecified osteoarthritis, unspecified site; G43.909 Migraine, unspecified, not intractable, without status migrainosus; Z98.890 Other specified postprocedural states; Z79.899 Other long term (current) drug therapy; Z88.6 Allergy status to analgesic agent; Z86.73 Personal history of transient ischemic attack (TIA), and cerebral infarction without residual deficits
CPT/HCPCS: 36415; 74176; 80048; 81001; 85027; 96374; 96375; 99284; J2270; J2405; J7030

== ENCOUNTER 2018-12-18 08:40 | Outpatient (CLI) | payer OTHER ==
[2018-12-18 09:20] LABS: Blood Urea Nitrogen 15 mg/dL (9-20)
--- NOTE | 2018-12-18 13:58 | Cat Scan Report ---
CTA ABDOMEN AND PELVIS HISTORY: Essential hypertension, abdominal aortic aneurysm COMPARISON: 10/25/2017 CT abdomen pelvis without contrast. 10/13/2017 CT angio Abdomen and pelvis TECHNIQUE: Noncontrast CT abdomen obtained. Routine postcontrast CT angiography of the abdomen and p priyanka performed. Multiplanar/MIP/3D reformats were post-processed. All CT scans at this location are performed using CT dose reduction for ALARA by means of automated exposure control. CONTRAST: 100 ml of Omnipaque 350 FINDINGS: CTA ABDOMEN: Abdominal Aorta: Fusiform dilatation of the infrarenal aorta appears relatively stable measuring 4.6 cm in maximum diameter. An aortobiiliac stent is again noted in the same position. There is a blush o f contrast in the posterior aneurysm sac consistent with a type II endoleak which is unchanged. Celiac Artery: No significant abnormality. Superior Mesenteric Artery: No significant abnormality. Renal Arteries: Right: No significant abnormality. Left: No significant abnormality. 2 left renal arteries are noted. Inferior Mesenteric Artery: Occluded at its origin. There is reconstitution of flow distally. CTA PELVIS: RIGHT: Common Iliac Artery: Moderate fusiform dilatation measuring 2.8 cm. Internal Iliac Artery: No significant abnormality. External Iliac Artery: No significant abnormality. LEFT: Common Iliac Artery: Mild fusiform dilatation measuring 2.1 cm. Internal Iliac Artery: No significant abnormality. External Iliac Artery: No significant abnormality. NONTARGET STRUCTURES: ABDOMEN: GI:No significant abnormality. Mild diverticulosis of the distal colon is again noted. Normal append ix. :No significant abnormality. Lymphatics:No significant abnormality. PELVIS: :No significant abnormality. Osseous Structures: Intact. Additional Findings: Trace right pleural effusion and trace pelvic ascites. IMPRESSION: The infrarenal AAA containing a stent graft measures 4.6 cm in maximum diameter. Type II endoleak is again noted. Mild dilatation of the right and left common iliac arteries as described, stable. Signer Name: Remington Vernon Jr, MD Signed: 12/18/2018 1:53 PM Workstation Name: [id number]
== END 2018-12-18 08:41 | disposition home or self-care (01) ==
LOC: CT 08:40
PROVIDERS: ATTEND Surgery Vascular Surgery
DX: I71.4 Abdominal aortic aneurysm, without rupture (principal); I72.3 Aneurysm of iliac artery; I10 Essential (primary) hypertension; M54.16 Radiculopathy, lumbar region; I48.91 Unspecified atrial fibrillation; K21.9 Gastro-esophageal reflux disease without esophagitis
CPT/HCPCS: 36415; 74174; 82565; 84520; Q9967